=== PATIENT | female | born 1955 | race Caucasian/White ===

== ENCOUNTER → 2017-04-20 | Outpatient (CLI) | payer BC, MEDICARE | END | disposition home or self-care (01) | LOC: RAD 16:03 | PROVIDERS: ATTEND Family Medicine | DX: J98.4 Other disorders of lung (principal) | CPT/HCPCS: 71046 ==

== ENCOUNTER → 2017-05-07 | Outpatient (CLI) | payer BC, MEDICARE ==
[~2017-05-07] MED LIST: OMNIPAQUE 350 MG/ML, 100ML BOTTLE ONE
== END | disposition home or self-care (01) ==
LOC: CFH 06:42 → EDSTATUS 07:00
PROVIDERS: ATTEND Family Medicine
DX: I08.1 Rheumatic disorders of both mitral and tricuspid valves (principal); J98.11 Atelectasis; R10.84 Generalized abdominal pain
CPT/HCPCS: 74177; 93306; Q9967

== ENCOUNTER → 2017-11-23 | Outpatient (CLI) | payer BC, MEDICARE ==
[~2017-11-23] MED LIST changes: +GADOBUTROL 10 MMOL/10 ML VIAL ONE; -OMNIPAQUE 350 MG/ML, 100ML BOTTLE ONE
== END | disposition home or self-care (01) ==
LOC: RAD 13:12
PROVIDERS: ATTEND Internal Medicine Endocrinology, Diabetes & Metabolism
DX: M54.12 Radiculopathy, cervical region (principal); E22.1 Hyperprolactinemia; E27.49 Other adrenocortical insufficiency
CPT/HCPCS: 70553; A9585

== ENCOUNTER → 2018-04-03 | Outpatient (CLI) | payer BC, MEDICARE | END | disposition home or self-care (01) | LOC: CFH 08:55 | PROVIDERS: ATTEND Registered Nurse Registered Nurse First Assistant | DX: M50.11 Cervical disc disorder with radiculopathy, high cervical region (principal); M25.78 Osteophyte, vertebrae; M48.02 Spinal stenosis, cervical region; M99.11 Subluxation complex (vertebral) of cervical region | CPT/HCPCS: 72040; 72141; 72146 ==

== ENCOUNTER 2018-10-04 12:27 | Outpatient (CLI) | payer BC, MEDICARE | END 2018-10-04 23:59 | disposition home or self-care (01) | LOC: CFH 12:27 | PROVIDERS: ATTEND Family Medicine | DX: N63.10 Unspecified lump in the right breast, unspecified quadrant (principal) | CPT/HCPCS: 77066; G0279 ==

== ENCOUNTER → 2019-04-11 | Outpatient (CLI) | payer BC, MEDICARE | END | disposition home or self-care (01) | LOC: CFH 08:59 | PROVIDERS: ATTEND Neurological Surgery | DX: M47.22 Other spondylosis with radiculopathy, cervical region (principal); M48.02 Spinal stenosis, cervical region; M50.23 Other cervical disc displacement, cervicothoracic region; Z68.20 Body mass index [BMI] 20.0-20.9, adult; E78.5 Hyperlipidemia, unspecified; G89.29 Other chronic pain; I10 Essential (primary) hypertension; E78.00 Pure hypercholesterolemia, unspecified; F32.9 Major depressive disorder, single episode, unspecified; F41.9 Anxiety disorder, unspecified; M19.90 Unspecified osteoarthritis, unspecified site; E03.9 Hypothyroidism, unspecified; Z88.1 Allergy status to other antibiotic agents; Z88.2 Allergy status to sulfonamides | CPT/HCPCS: 72040; 72141 ==

== ENCOUNTER 2020-05-28 10:44 | Outpatient (CLI) | payer BC, MEDICARE | END 2020-05-28 23:59 | disposition home or self-care (01) | LOC: CFH 10:44 | PROVIDERS: ATTEND Family Medicine | DX: Z12.31 Encounter for screening mammogram for malignant neoplasm of breast (principal); Z12.39 Encounter for other screening for malignant neoplasm of breast | CPT/HCPCS: 76641; 77063; 77067 ==